=== PATIENT | female | born 1990 | race American Indian/Alaskan Native ===

== ENCOUNTER 2018-04-22 14:36 | Emergency (ER) | payer MEDICAID ==
[2018-04-22 14:47] VITALS: BP 124/61
[2018-04-22] MEDS ORDERED: ZOFRAN ODT PO ONE (15:10)
--- NOTE | 2018-04-22 15:13 | Emergency Department Report ---
ED General Adult HPI - General Chief complaint: Nausea/Vomiting/Diarrhea Stated complaint: VOMITING/COUGHING Time Seen by Provider: 04/22/18 15:00 Source: patient Mode of arrival: Ambulatory Limitations: No Limitations - History of Present Illness Initial comments: Laura is a very pleasant healthy 27-year-old female without significant past medical history who presents with nausea vomiting cough. For the last 3 days she has had vomiting. Nonproductive cough. She denies fever. Denies nasal congestion. Denies sore throat. She denies abdominal pain. Denies dysuria. Denies vaginal bleeding. Unable to recall last menstrual period. LMP possibly occurred in February. Has had 3 pregnancies. One healthy child. 2 miscarriages. -: days(s) (3) Improves with: none Worsens with: none Associated Symptoms: cough - Related Data Previous Rx's Medication Instructions Recorded Last Taken Type Brompheniramine/Pseudoephed/Dm 118 ml PO TID PRN #150 syrup 02/02/16 Unknown Rx [Bromfed Dm Cough Syrup] Cetirizine HCl 5 mg PO DAILY #30 tablet 02/02/16 Unknown Rx Ondansetron [Zofran Odt] 4 mg PO Q8HR PRN #10 tab.rapdis 04/22/18 Unknown Rx Promethazine [Phenergan TAB] 25 mg PO Q6HR PRN #10 tab 04/22/18 Unknown Rx Allergies Allergy/AdvReac Type Severity Reaction Status Date / Time No Known Allergies Allergy Unverified 02/02/16 19:43 ED Review of Systems ROS: Stated complaint: VOMITING/COUGHING Other details as noted in HPI Comment: All other systems reviewed and negative Constitutional: denies: fever, malaise Respiratory: see HPI Gastrointestinal: nausea, vomiting. denies: abdominal pain Genitourinary: denies: urgency, dysuria ED Past Medical Hx - Past Medical History Previous Medical History?: No - Surgical History Past Surgical History?: Yes Additional Surgical History: Thyroid cyst, - Social History Smoking Status: Never Smoker Substance Use Type: Marijuana - Medications Home Medications: Home Medications Medication Instructions Recorded Confirmed Last Taken Type Brompheniramine/Pseudoephed/Dm 118 ml PO TID PRN #150 syrup 02/02/16 Unknown Rx [Bromfed Dm Cough Syrup] Cetirizine HCl 5 mg PO DAILY #30 tablet 02/02/16 Unknown Rx Ondansetron [Zofran Odt] 4 mg PO Q8HR PRN #10 tab.rapdis 04/22/18 Unknown Rx Promethazine [Phenergan TAB] 25 mg PO Q6HR PRN #10 tab 04/22/18 Unknown Rx ED Physical Exam - General Limitations: No Limitations General appearance: alert, in no apparent distress - Head Head exam: Present: atraumatic, normocephalic - Eye Eye exam: Present: normal appearance - ENT ENT exam: Present: mucous membranes moist - Neck Neck exam: Present: normal inspection, full ROM. Absent: tenderness, meningismus - Respiratory Respiratory exam: Present: normal lung sounds bilaterally. Absent: respiratory distress, wheezes, rales, rhonchi - Cardiovascular Cardiovascular Exam: Present: regular rate, normal rhythm, normal heart sounds. Absent: systolic murmur, diastolic murmur, rubs, gallop - GI/Abdominal GI/Abdominal exam: Present: soft, normal bowel sounds. Absent: distended, tenderness, guarding, rebound - Extremities Exam Extremities exam: Present: normal inspection - Back Exam Back exam: Present: normal inspection - Neurological Exam Neurological exam: Present: alert, oriented X3 - Psychiatric Psychiatric exam: Present: normal affect, normal mood - Skin Skin exam: Present: warm, dry, intact, normal color. Absent: rash ED Course Vital Signs 04/22/18 14:44 Temperature 98.2 F Pulse Rate 106 H Respiratory 18 Rate Blood Pressure 124/61 O2 Sat by Pulse 100 Oximetry ED Medical Decision Making - Medical Decision Making confirmed today by urine test. No current pain to indicate ectopic . Vomiting due to morning sickness. Patient appears well- hydrated. No notable cough. Cough caused either by mild aspiration or early viral respiratory infection. Prescription promethazine and Zofran Critical care attestation.: If time is entered above; I have spent that time in minutes in the direct care of this critically ill patient, excluding procedure time. ED Disposition Clinical Impression: Disposition: DC-01 TO HOME OR SELFCARE Is pt being admited?: No Does the pt Need Aspirin: No Condition: Stable Instructions: (ED) Prescriptions: Ondansetron [Zofran Odt] 4 mg PO Q8HR PRN #10 tab.rapdis PRN Reason: nausea vomiting Promethazine [Phenergan TAB] 25 mg PO Q6HR PRN #10 tab PRN Reason: Nausea Referrals: [facility] [Provider Group] - 3-5 Days
[2018-04-22 15:37] LABS: HCG Qualitative,Urine Positive (Negative)
== END 2018-04-22 16:47 | disposition home or self-care (01) ==
LOC: ED 14:36
DX: O26.891 Other specified pregnancy related conditions, first trimester (principal); F12.10 Cannabis abuse, uncomplicated; Z3A.01 Less than 8 weeks gestation of pregnancy
CPT/HCPCS: 81025; 99283; Q0162